=== PATIENT | female | born 1955 | race Caucasian/White ===

== ENCOUNTER 2021-01-01 07:52 | Outpatient (REF) | payer OTHER, SELFPAY ==
--- NOTE | ~2021-01-01 | MM_ITS ---
EXAMINATION: MM SCREENING DIGITAL BREAST TOMOSYNTHESIS, BILATERAL CLINICAL INFORMATION: Screening. Asymptomatic. Right breast cancer, 2004. COMPARISON: Mammography: 11/27/2019, 08/01/2018, 07/05/2017 TECHNIQUE: Digital breast tomosynthesis is performed in both the craniocaudal and mediolateral oblique views along with computer-aided detection (CAD). Synthesized 2D images are generated from the tomosynthesis. FINDINGS: There are scattered areas of fibroglandular density (ACR BI-RADS breast composition Category b). Parenchymal pattern is similar to prior exams. Again, there are generated bilateral smooth nodularity, dominant on right medial breast and at least 3 dominant on left, similar to prior studies. There is no developing density or interval significant mass or architectural abnormality. No abnormal calcifications. The axilla and skin contours are unremarkable. No significant changes from prior studies. MM/MM tomosynthesis screening BI IMPRESSION: No significant changes from prior exams. ASSESSMENT: BI-RADS 2: Benign RECOMMENDATION: Routine annual mammography screening. This patient's information was entered into a reminder system with a target due date for their next mammogram.
== END 2021-01-01 07:53 | disposition home or self-care (01) ==
LOC: HO.MAMMO 07:52
PROVIDERS: PCP Internal Medicine; Visit Provider Internal Medicine
DX: Z12.31 Encounter for screening mammogram for malignant neoplasm of breast (principal)
CPT/HCPCS: 77063; 77067

== ENCOUNTER 2022-01-11 07:18 | Outpatient (REF) | payer MEDICARE, SELFPAY ==
--- NOTE | ~2022-01-11 | MM_ITS ---
EXAMINATION: MM SCREENING DIGITAL BREAST TOMOSYNTHESIS, BILATERAL CLINICAL INFORMATION: Screening. Asymptomatic. Status post right breast lumpectomy COMPARISON: Mammography: January 01, 2021 and studies dating back to May 12, 2014. TECHNIQUE: Digital breast tomosynthesis is performed in both the craniocaudal and mediolateral oblique views along with computer-aided detection (CAD). Synthesized 2D images are generated from the tomosynthesis. FINDINGS: There are scattered areas of fibroglandular density (ACR BI-RADS breast composition Category b). There are no new significant masses, abnormal calcifications, or other abnormalities. Postsurgical changes noted within the right breast. MM/MM tomosynthesis screening BI IMPRESSION: No significant changes from prior exam. ASSESSMENT: BI-RADS 2: Benign RECOMMENDATION: Routine annual mammography screening. This patient's information was entered into a reminder system with a target due date for their next mammogram.
== END 2022-01-11 07:19 | disposition home or self-care (01) ==
LOC: HO.MAMMO 07:18
PROVIDERS: PCP Internal Medicine; Visit Provider Internal Medicine
DX: Z12.31 Encounter for screening mammogram for malignant neoplasm of breast (principal)
CPT/HCPCS: 77063; 77067

== ENCOUNTER 2023-01-17 07:17 | Outpatient (REF) | payer MEDICARE, SELFPAY ==
--- NOTE | ~2023-01-17 | MM_ITS ---
EXAMINATION: MM SCREENING DIGITAL BREAST TOMOSYNTHESIS, BILATERAL CLINICAL INFORMATION: Screening. Asymptomatic. History of prior right invasive ductal cancer in 2004. COMPARISON: Mammography: This study is compared with prior exams dating back to 2017. TECHNIQUE: Digital breast tomosynthesis is performed in both the craniocaudal and mediolateral oblique views along with computer-aided detection (CAD). Synthesized 2D images are generated from the tomosynthesis. FINDINGS: There are scattered areas of fibroglandular density (ACR BI-RADS breast composition Category b). There are no significant masses, abnormal calcifications, or other abnormalities. There are architectural changes in the right breast and right axilla from prior cancer surgery. Bilateral benign calcifications are present.. MM/MM tomosynthesis screening BI IMPRESSION: No mammographic evidence of malignancy. ASSESSMENT: BI-RADS BI-RADS 2 - Benign Findings RECOMMENDATION: Routine annual mammography screening. 1 year F/U This examination should not preclude the clinical evaluation of a suspicious palpable abnormality. This patient's information was entered into a reminder system with a target due date for their next mammogram.
== END 2023-01-17 07:18 | disposition home or self-care (01) ==
LOC: HO.MAMMO 07:17
PROVIDERS: PCP Internal Medicine; Visit Provider Internal Medicine
DX: Z12.31 Encounter for screening mammogram for malignant neoplasm of breast (principal)
CPT/HCPCS: 77063; 77067

== ENCOUNTER → 2023-01-17 07:30 | Outpatient (BNV) | payer MEDICARE, SELFPAY | PROVIDERS: PCP Internal Medicine; Visit Provider Radiology Diagnostic Radiology | DX: Z12.31 Encounter for screening mammogram for malignant neoplasm of breast (principal) | CPT/HCPCS: 77063; 77067 ==

== ENCOUNTER 2024-01-23 07:17 | Outpatient (REF) | payer MEDICARE, SELFPAY ==
--- NOTE | ~2024-01-23 | MM_ITS ---
EXAMINATION: MM SCREENING DIGITAL BREAST TOMOSYNTHESIS, BILATERAL CLINICAL INFORMATION: Screening. Asymptomatic. COMPARISON: Mammography: Comparison is made with available priors TECHNIQUE: Digital breast mammography with tomosynthesis is performed in both the craniocaudal and mediolateral oblique views along with computer-aided detection (CAD). FINDINGS: The breasts are heterogeneously dense, which may obscure small masses (ACR BI-RADS breast composition Category c). There are no significant masses, abnormal calcifications, or other abnormalities. MM/MM tomosynthesis screening BI IMPRESSION: No mammographic evidence of malignancy. ASSESSMENT: BI-RADS BI-RADS 1 - Negative RECOMMENDATION: Routine annual mammography screening. 1 year F/U This examination should not preclude the clinical evaluation of a suspicious palpable abnormality. This patient's information was entered into a reminder system with a target due date for their next mammogram. Electronically signed by: Lennie Acuna DO 01/23/2024 09:20 AM KITA
== END 2024-01-23 07:18 | disposition home or self-care (01) ==
LOC: HO.MAMMO 07:17
PROVIDERS: PCP Internal Medicine; Visit Provider Internal Medicine
DX: Z12.31 Encounter for screening mammogram for malignant neoplasm of breast (principal)
CPT/HCPCS: 77063; 77067

== ENCOUNTER → 2024-01-23 07:30 | Outpatient (BNV) | payer MEDICARE, SELFPAY | PROVIDERS: PCP Internal Medicine; Visit Provider Internal Medicine | DX: Z12.31 Encounter for screening mammogram for malignant neoplasm of breast (principal) | CPT/HCPCS: 77063; 77067 ==

== ENCOUNTER 2025-02-04 07:16 | Outpatient (REF) | payer MEDICARE, SELFPAY ==
--- NOTE | ~2025-02-04 | MM_ITS ---
EXAMINATION: MM SCREENING DIGITAL BREAST TOMOSYNTHESIS, BILATERAL CLINICAL INFORMATION: Screening. Asymptomatic. COMPARISON: Mammography: Comparison is made with available priors TECHNIQUE: Digital breast mammography with tomosynthesis is performed in both the craniocaudal and mediolateral oblique views along with computer-aided detection (CAD). FINDINGS: The breasts are heterogeneously dense, which may obscure small masses. Right post lumpectomy changes are stable. Bilateral focal asymmetries are stable. There are no significant masses, abnormal calcifications, or other abnormalities. MM/MM tomosynthesis screening BI IMPRESSION: No mammographic evidence of malignancy. ASSESSMENT: BI-RADS Category 2: Benign RECOMMENDATION: Routine annual mammography screening. 1 year F/U This examination should not preclude the clinical evaluation of a suspicious palpable abnormality. This patient's information was entered into a reminder system with a target due date for their next mammogram. Electronically signed by: Lennie Acuna DO 02/04/2025 10:30 AM KITA
--- OUTSIDE RECORDS SUMMARY | 2025-02-04 07:18 | XMS_ITS | Clinical Summary ---
Author Organization [facility] Address [address] [place] [id number] Phone Care Team Providers Care Hand Sander Name Role Phone Efrain Espinosa MD Unavailable [phone] Gera Oneal MD Primary Care Provider [phone] Allergies No known active allergies Medications polyethylene glycol 3350 (MIRALAX ORAL) Take by mouth daily as needed. Active TURMERIC ORAL Take 1 capsule by mouth daily. Active nicotine (NICODERM CQ) 14 mg/[address] 1 patch onto the skin daily. Active cholecalciferol (VITAMIN D3) 25 MCG (1,000 unit) tabletIndication s:Vitamin D deficiency, unspecified Take 1 tablet (1,000 Units total) by mouth daily. 04/12/2024 Active Active Problems Problem Noted Date Diagnosed Date Menopausal state 04/11/2022 Assessment & Plan (04/11/2022 4:03 AM EST): Check dxa Chronic pain of both ankles 04/11/2022 Assessment & Plan (04/11/2022 4:04 AM EST): Continue regular physical activity, stretching. Declines referral to ortho at This time Prediabetes 12/18/2020 Assessment & Plan (04/11/2022 4:03 AM EST): Continue excellent consistency with healthy diet, regular physical activity. Discussed that although A1C is still increased, these are worthwhile changes to make for long-term health and risk reduction. Hearing decreased, bilateral 12/05/2019 Assessment & Plan (12/05/2019 9:08 AM EDT): Will monitor, declines audiology referral today Red tongue 12/05/2019 Assessment & Plan (12/05/2019 9:09 AM EDT): Assess for B12 or folate deficiency Sebaceous cyst of right axilla 12/05/2019 Assessment & Plan (12/05/2019 9:10 AM EDT): Will try warm compresses to area, unable to assess if there is some degree of impaction present under tissue. Will consider following up with general surgery for evaluation of excision Umbilical hernia without obstruction and without gangrene 12/05/2019 Assessment & Plan (04/11/2022 4:03 AM EST): Stable, declines referral at this time. Will f/u immediately if any worsening sx. Assessment & Plan (12/05/2019 9:11 AM EDT): Discussed nature of findings, monitoring, treatment options. Rosamaria prefers to avoid seeing a general surgeon at this time as hernia is soft, reducible. We reviewed warning signs and possible implications of strangulated bowel at site of hernia. She demonstrates understanding and will follow-up if any major concerns. Anxiety and depression 12/05/2019 Assessment & Plan (12/05/2019 9:15 AM EDT): Discussed options for treatment of anxiety and depression. Rosamaria prefers to pursue conservative management with getting outside, gardening, gentle walking. If she has any worsening symptoms she will follow-up immediately. Tobacco use disorder 04/11/2019 Assessment & Plan (04/11/2022 4:04 AM EST): Supportive counseling re: cutting back on use. Will continue nicotine replacement. Assessment & Plan (12/05/2019 9:10 AM EDT): Continues regular tobacco use, not ready to quit History of breast cancer 04/11/2019 Assessment & Plan (04/11/2022 4:02 AM EST): UTD with screening Assessment & Plan (12/05/2019 9:10 AM EDT): Mammogram up-to-date does not need to follow with oncology Chronic constipation 04/11/2019 Assessment & Plan (12/05/2019 9:09 AM EDT): Stable, continue adequate hydration and fiber Family history of melanoma 04/11/2019 Assessment & Plan (12/05/2019 9:08 AM EDT): Discussed importance of full body skin given many skin lesions and new issue of right axilla. She will follow-up with Dr. Mckinney Psoriasis Assessment & Plan (12/05/2019 9:15 AM EDT): Stable Osteopenia Overview (12/05/2019): last DXA 08/2018 Assessment & Plan (12/05/2019 9:10 AM EDT): Repeat DEXA 2020 Resolved Problems Problem Noted Date Diagnosed Date Resolved Date Impaired fasting glucose 04/11/2019 Assessment & Plan (12/05/2019 9:09 AM EDT): Await labs, recommend regular physical activity Encounters Date Type Department Care Team Description 01/23/2025 Telephone [facility] Internal Medicine [address] [facility] [place] [address] Gera Oneal MD Request For Order(s) (Screening mammogram + insurance authorization) 12/20/2024 Telephone [facility] Internal Medicine [address] [place] [address] Gera Oneal MD Gastro Referral from Last 3 Months Immunizations Immunization Administration Dates Next Due INFLUENZA, SPLIT VIRUS, TRIVALENT PF 02/13/2016 Influenza High-Dose Quadrivalent Preservative Fr ee IM 12/29/2021,12/18/2020 Influenza High-Dose Trivalent Preservative Free IM 01/11/2024 Influenza Quadrivalent Adjuvanted Preservative F ree IM 01/04/2023,12/14/2019 Influenza Trivalent Adjuvanted Preservative free IM 01/11/2019 Pneumococcal conjugate PCV13 12/05/2019 Pneumococcal polysaccharide PPSV23 12/18/2020 RSV Vaccine (monovalent, adjuvanted) 02/01/2023 Tdap 05/08/2023,07/21/2010 Zoster recombinant 11/19/2022,08/17/2022 Family History Medical History Relation Comments Skin cancer Brother 1 Arrhythmia Brother 2 Diabetes Brother 2 Hypertension Brother 2 Skin cancer Brother 2 Esophageal cancer Father pipe smoker Breast cancer Maternal Aunt Alzheimer's disease Mother Osteoporosis Mother Breast cancer Paternal Grandmother Osteoporosis Sister Relation Status Comments Brother 1 Alive Brother 2 Alive Brother 3 Alive Father (Age 80) cancer of esao phagus Maternal Aunt Mother (Age 80) alzheimers in 70 s Paternal Grandmother Sister Alive Social History Tobacco Use Types Packs/Day Years Used Date Smoking Tobacco: Every Day Cigarettes 0.5 53.9 Started: 1971 Passive Smoke Exposure: Current Smokeless Tobacco: Never Tobacco Cessation:Ready to Q uit: Not Asked; Counseling Given: Not Answered Comments:3 cigarettes QD Alcohol Use Standard Drinks/Week Comments Yes 0 (1 standard drink = 0.6 oz pure alcohol) 1-2 drinks a year; Bloody Rosamaria on 's seth Child or Family Care Answer Date Record ed Do you have problems with on e of the following making it difficult for you to work, study, or receive health care? No 04/05/2022 Education Answer Date Recorded Are you interested in more education? Not on maximo e 04/08/2024 Are you concerned about learning? Not on file 04/08/2024 No 04/08/2024 No 04/08/2024 Food Answer Date Recorded Within the past 6 months we worried whether our food would run out before we got money to buy more. Never True 04/05/2022 Within the past 6 months the food we bought just didn't last and we didn't have enough money to get more. Never True Residential Stability Answer Date Recor ded What is your housing situation today? I have katherine sing 04/05/2022 How many times have you move d in the past 12 months? Zero (I did not move) 04/05/2022 Paying for Meds Answer Date Recorded Do you have trouble paying for medicines? No 04/05/2022 Paying Utility Bills Answer Date Record ed Do you have trouble paying your heating or elect ricity bill? No 04/05/2022 Transportation Answer Date Recorded Has the lack of transportati on kept you from medical appointments or from getting medications? No 04/05/2022 Unemployment Answer Date Recorded Are you currently unemployed or working on a part-time or temporary basis, and looking for work? No 04/05/2022 Digital Access Answer Date Recorded No 07/27/2022 No 07/27/2022 Reliable internet access at home? Not on file 07/27/2022 Device with a working camera? Not on file Intimate Partner Violence Answer Date R ecorded Denied Basic Needs Not on file 04/12/2024 In the past 12 months have y ou been in a relationship with a person who hurts, threatens, or tries to control you? No 04/12/2024 Worried food would run out Not on file 04/12 In the past 12 months have y ou been in a relationship with a person who hurts, threatens, or tries to control you? No 04/12/2024 Comments No Sex and Gender Information Value Date Recorded Sex Assigned at Female 04/05/2022 8:32 AM EST Legal Sex Female 9:56 PM EDT Gender Identity Female 04/05/2022 8:32 AM EST Sexual Orientation Straight 04/05/2022 8: 32 AM EST Last Filed Vital Signs Vital Sign Reading Time Taken Comments Blood Pressure 100/63 04/12/2024 8:27 AM EST Pulse 72 04/12/2024 8:27 AM EST Temperature 36.3 C (97.4 F) 04/12/2024 8:27 AM EST Respiratory Rate 20 04/12/2024 8:27 AM EST Oxygen Saturation 97% 04/12/2024 8:27 AM EST Inhaled Oxygen Concentration - - Weight 90.1 kg (198 lb 9.6 oz) 04/12/2024 8:27 A M EST Height 165.8 cm (5' 5.28 ) 04/12/2024 8:27 AM ES T Body Mass Index 32.77 04/12/2024 8:27 AM EST Plan of Treatment Upcoming Encounters Date Type Department Care Team (Late st Contact Info) Description 04/18/2025 8:30 AM EST Office Visit [facility] Internal Medicine [address] [place] [address] Gera Oneal MD [address] [place] [address] [email or web address] Health Maintenance Due Date Last Done Comments HEPATITIS C SCREENING 12/24/1971 COLOGUARD 1998 FIT TEST 1998 FOBT 1998 SIGMOIDOSCOPY 1998 VIRTUAL COLONOSCOPY 1998 LUNG CANCER SCREENING (LDCT Only) 12/24/2003 INFLUENZA VACCINE (#1) 2024 , 01/04/2023, 12/29/2021, Additional history exists COLONOSCOPY 10/15/2024 10/15/2021, 11/15/2010 COLORECTAL CANCER SCREENING 10/15/2024 COVID-19 VACCINE ( season) 2024 01/11/2024, 01/04/2023, 02/16/2022, Additional history exists DEPRESSION SCREENING 04/12/2025 04/12/2024 SMOKING Hx and SMOKELESS TOBACCO SCREENING 04/12/2025 04/12/2024 FOLLOW UP BONE DENSITY TESTING 04/12/2026 04/12/2024, 07/12/2022, 04/05/2022, Additional history exists MAMMOGRAM 01/24/2027 01/24/2025, 01/04, 01/17/2023, Additional history exists LIPID PANEL 10/12/2027 10/11/2022, 10/2022, 10/11/2022, Additional history exists Adult Td,Tdap Booster 05/07/2033 05/08/2023, 011 PNEUMOCOCCAL VACCINES (50+ years) Completed 12/18/2020, 12/05/2019 ZOSTER VACCINES Completed 11/19/2022, 08/17/2022 RSV VACCINE Completed 02/01/2023 OSTEOPOROSIS SCREENING INITIAL (ONE-TIME) Completed 04/12/2024, 07/12/2022, 04/05/2022, Additional history exists HEPATITIS A VACCINES Aged Out No long er eligible based on patient's age to complete this topic HIB VACCINES Aged Out No longer eligi ble based on patient's age to complete this topic MENINGOCOCCAL VACCINES (ACWY) Aged Out No longer eligible based on patient's age to complete this topic MENINGOCOCCAL VACCINES (B) Aged Out N o longer eligible based on patient's age to complete this topic Medical Devices Not on file Procedures Procedure Name Priority Date/Time Associated Diagnosis Comments BI MAMMOGRAM SCREENING (BILATERAL) Routine 01/24/2025 8:00 AM EST Screening mammogram, encounter for BD DXA SCREENING Routine 04/12/2024 8:51 AM EST Postmenopausal estrogen deficiency OUTSIDE HDL Routine 10/11/2022 COLONOSCOPY FOR RESULT ENTRY ONLY Routine 10/15/2021 from Last 3 Months or Most Recently Relevant to Health Maintenance Results * MAMMOGRAPHY FOR RESULT ENTRY ONLY (01/23/2024 3:06 PM EST) Historical Provider HEALTH MAINTENANCE Final Result * Outside HDL (10/11/2022) HDL - External 67 40 - 80 mg/dL Historical Provider LAB BLOOD ORDERABLES Nai l Result * DEXA SCAN (07/12/2022) Genoveva Yan [facility] HEALTH MAINTENANCE Dragan thelma Result - Final * COLONOSCOPY FOR RESULT ENTRY ONLY (10/15/2021) Historical Provider HEALTH MAINTENANCE Edited Result - Final from Last 3 Months or Most Recently Relevant to Health Maintenance Insurance [employer] RE[employer] Care Teams Hand Sander Relationship Specialty Start Date End Date Gera Oneal MD [address] [place] [address] [email or web address] PCP - General Internal Medicine 07/25/22 Efrain Espinosa MD [address] [place] [phone] Obstetrics and Gynecology 04/10/19 Additional Source Comments The information contained in this document represents components of the legal health record. It is not the complete legal health record.[facility]
--- OUTSIDE RECORDS SUMMARY | 2025-02-04 07:18 | XMS_ITS | Clinical Summary ---
Author Organization [facility] Address [address] [place] [id number] Care Team Providers Care Joinery Setter Out Name Role Phone Genoveva Yan NP Primary Care Provider Gustavo correa Social History Tobacco Use Types Packs/Day Years Used Date Smoking Tobacco: Never Assessed Comments Unknown Sex and Gender Information Value Date Recorded Sex Assigned at Not on file Legal Sex Female 7:41 AM MST Gender Identity Not on file Sexual Orientation Not on file Plan of Treatment Health Maintenance Due Date Last Done Comments CT Colonography 1953 Cologuard 1955 FOBT/FIT 1955 Hepatitis C Screening 1955 Sigmoidoscopy 1955 PHQ-9 Depression Screen 1965 Complete Annual HRA 12/24/1971 CARY-7 Anxiety Screen 12/24/1971 Zoster Vaccines (1 of 2) 12/24/2003 DTaP,Tdap,and Td Vaccines (2 - Td or Tdap) 07/21/2020 07/21/2010 Mammogram 11/26/2021 11/27/2019, 11/05, 08/01/2018, Additional history exists Annual Preventive Exam 12/18/2021 1, 12/05/2019, 12/05/2019, Additional history exists COVID-19 Vaccine ( - season) 2024 Influenza Vaccine (#1) 2024 1, 01/11/2019, 02/13/2016 RSV Vaccine (SCDM) (1 - 1-dose 75+ series) 2028 Colonoscopy 10/16/2031 10/15/2021 Colorectal Cancer Screening 10/16/2031 Bone Density DEXA Completed 08/21/2018 Pneumococcal Vaccine: 50+ Years Completed 12/18/2020, 12/05/2019 Hepatitis B Vaccines Aged Out No long er eligible based on patient's age to complete this topic Insurance [employer] Care Teams Joinery Setter Out Relationship Specialty Start Date End Date Genoveva Yan NP PCP - General Family Medicine 11/27/20
== END 2025-02-04 07:17 | disposition home or self-care (01) ==
LOC: HO.MAMMO 07:16
PROVIDERS: PCP Internal Medicine; Visit Provider Internal Medicine
DX: Z12.31 Encounter for screening mammogram for malignant neoplasm of breast (principal)
CPT/HCPCS: 77063; 77067

== ENCOUNTER → 2025-02-04 07:30 | Outpatient (BNV) | payer MEDICARE, SELFPAY | PROVIDERS: PCP Internal Medicine; Visit Provider Internal Medicine | DX: Z12.31 Encounter for screening mammogram for malignant neoplasm of breast (principal) | CPT/HCPCS: 77063; 77067 ==